=== PATIENT | female | born 1975 | race Caucasian/White ===

== ENCOUNTER 2019-05-28 15:27 | Emergency (ER) | payer BC ==
[~2019-05-28] VITALS: Ht 157.5 cm; Wt 94.4 kg
[~2019-05-28 15:27] MED LIST: CARV6.2512 PO; DOCU-131 PO; IBUP-1222 PO; LISI5TAB7 PO; OXYC-302 PO
--- NOTE | 2019-05-28 15:59 | NUR ---
FIRST CONTACT WITH PT. PT STATES "I FEEL DIZZY, LIGHT HEADED, I HAVE A PRESSURE ON MY CHEST" SEEN BY [employer] COMPOSITE TECHNICIAN 05/27 BUT WAS NOT HAVING THE PRESSURE FEELING AT THAT TIME. NON RADIATING SUBSTERNAL PRESSURE. ALL MONITORS IN PLACE. SINUS TACHY RATE 100-110'S ON AXMINSTER WEAVER AT THIS TIME. PT'S AOX4. RESPS EVEN AND UNLABORED. CALL LIGHT WITHIN REACH.
--- NOTE | 2019-05-28 16:29 | NUR ---
LAB AT BEDSIDE AT THIS TIME.
[2019-05-28 16:40] LABS: BASOPHILS # (AUTO) 0.03 x10^3/uL (0-0.1); BASOPHILS % (AUTO) 0 % (0-1); EOSINOPHILS # (AUTO) 0.17 x10^3/uL (0-0.4); EOSINOPHILS % (AUTO) 2 % (1-7); LYMPHOCYTES # (AUTO) 2.33 x10^3/uL (1-3.4); LYMPHOCYTES % (AUTO) 22 % (22-44); MD NO; MEAN CORPUSCULAR HEMOGLOBIN 25.8 pg (27.0-34.8); MEAN CORPUSCULAR HGB CONC 32.5 g/dL (32.4-35.8); MEAN CORPUSCULAR VOLUME 79.3 fL (80-100); MEAN PLATELET VOLUME 8.2 fL (7.4-10.4); MONOCYTES # (AUTO) 0.42 x10^3/uL (0.2-0.8); MONOCYTES % (AUTO) 4 % (2-9); NEUTROPHILS % (AUTO) 72 % (42-75); PLATELET COUNT 367 x10^3/uL (130-400); RED BLOOD COUNT 5.47 x10^6/uL (3.82-5.3); RED CELL DISTRIBUTION WIDTH 16.4 % (9.6-15.2)
[2019-05-28 16:48] LABS: ALANINE AMINOTRANSFERASE 34 U/L (12-78); ALBUMIN 3.8 g/dL (3.4-5.0); ANION GAP 6 mmol/L (5-15); CALCIUM 8.6 mg/dL (8.5-10.1); CHLORIDE 106 mmol/L (98-107); CREATININE 0.69 mg/dL (0.55-1.02)
[2019-05-28 16:52] LABS: ALKALINE PHOSPHATASE 128 U/L (45-117); BILIRUBIN,TOTAL 0.3 mg/dL (0.2-1.0); TOTAL PROTEIN 8.1 g/dL (6.4-8.2); TROPONIN I < 0.015 ng/mL (0.000-0.045)
[2019-05-28] MEDS ORDERED: DIAZEPAM 5 MG/ML, 2ML ONE (17:19)
[2019-05-28] MEDS ORDERED: DIAZEPAM 5 MG/ML, 2ML IV ONE (17:30)
--- NOTE | 2019-05-28 17:30 | NUR ---
PT AMB TO BR WITH STEADY GAIT.
--- NOTE | 2019-05-28 17:39 | NUR ---
PT MEDICATED PER EMAR. PT TOLERATED WELL.
[2019-05-28 18:37] VITALS: BP 117/74
--- NOTE | 2019-05-28 18:55 | NUR ---
Patient given discharge instructions and they have confirmed that they understand the instructions.
== END 2019-05-28 18:56 | disposition home or self-care (01) ==
LOC: ED 18:53
DX: R07.89 Other chest pain (principal); R00.0 Tachycardia, unspecified; I11.0 Hypertensive heart disease with heart failure; I50.9 Heart failure, unspecified
CPT/HCPCS: 36415; 71045; 80053; 83880; 84484; 85025; 93005; 96374; 99284; J3360

== ENCOUNTER → 2019-07-04 | Outpatient (CLI) | payer BC | END | disposition home or self-care (01) | LOC: CFH 07:02 | PROVIDERS: ATTEND Internal Medicine Cardiovascular Disease | DX: I08.1 Rheumatic disorders of both mitral and tricuspid valves (principal); I11.0 Hypertensive heart disease with heart failure | CPT/HCPCS: 93306 ==

== ENCOUNTER → 2020-12-27 | Outpatient (CLI) | payer BC ==
[~2020-12-27] MED LIST changes: -OXYC-302 PO; +OXYC1TAB14 PO
== END | disposition home or self-care (01) ==
LOC: RAD 07:56
PROVIDERS: ATTEND Nurse Practitioner Family
DX: R74.8 Abnormal levels of other serum enzymes (principal); R10.11 Right upper quadrant pain
CPT/HCPCS: 76705